=== PATIENT | male | born 1945 | race Caucasian/White ===

== ENCOUNTER 2020-04-27 12:13 | Inpatient (IN) ==
[2020-04-27] MEDS ORDERED: Nitroglycerin 0.4 MG TAB.SUBL SL PRN (12:26)
[2020-04-27] MEDS ORDERED: Aspirin 81 MG TAB.CHEW PO ONE (12:26)
[2020-04-27 12:45] LABS: Basophils % 0.3 %; Eosinophils % 0.1 %; Hematocrit 44.6 % (37.5-50.1); Hemoglobin 15.3 g/dL (12.9-16.9); Immature Granulocytes % 0.3 % (0-4); Lymphocytes # 1.4 K/mcL (0.6-4.6); Lymphocytes % 16.1 %; Mean Corpuscular HGB Conc 34.3 g/dL (31.6-35.5); Mean Corpuscular Hemoglobin 30.1 pg (28.0-33.3); Mean Corpuscular Volume 87.8 fL (83.0-100.0); Mean Platelet Volume 9.1 fL (9.4-12.4); Monocytes # 0.5 K/mcL (0.0-1.3); Monocytes % 5.5 %; Neutrophils # 6.9 K/mcL (1.6-8.9); Platelet Count 258 K/mcL (140-400); Red Blood Count 5.08 M/mcL (4.19-5.50); Red Cell Distribution Width 13.1 % (11.5-14.5); Segmented Neutrophils % 77.7 %; White Blood Count 8.9 K/mcL (4.3-11.1)
[2020-04-27 12:57] LABS: INR 1.1; Prothrombin Time 12.2 Seconds (9.4-12.1)
[2020-04-27 12:59] LABS: Activated Partial Thrombo Time 24.3 Seconds (26.0-36.0)
[2020-04-27 13:06] LABS: BUN/Creatinine Ratio 16 (6-26); Blood Urea Nitrogen 12 mg/dL (8-23); Carbon Dioxide 24 mEq/L (23-29); Chloride 101 mEq/L (98-107); Glucose 113 mg/dL (70-105); Osmolality,Calculated 279 (280-300); Potassium 3.8 mEq/L (3.5-5.1); Sodium 134 mEq/L (136-145); Troponin I < 0.03 ng/mL (< 0.04); eGFR For African Americans > 60 (> 60); eGFR For Non-African Americans > 60 (> 60)
[2020-04-27] MEDS ORDERED: Naloxone 0.4 MG/ML INJ IVP PRN (14:09)
[2020-04-27] MEDS ORDERED: Ondansetron 4 MG/2 ML VIAL IVP PRN (14:09)
[2020-04-27] MEDS: carvediloL 6.25 MG TABLET PO SCH (16:53)
[2020-04-27] MEDS ORDERED: Saline Nasal Spray 44 ML BOTTLE NS PRN (17:03)
[2020-04-27] MEDS: Acetaminophen 325 MG TABLET PO PRN (17:50)
[2020-04-27] MEDS: *HR* HYDROcodone/Acet 5/325 mg TABLET PO PRN (20:27)
[2020-04-28 01:21] LABS: Alanine Aminotransferase 11 Units/L (7-52); Albumin/Globulin Ratio 1.5 (1.1-2.2); Alkaline Phosphatase 72 Units/L (34-104); Aspartate Amino Transferase 13 Units/L (13-39); BUN/Creatinine Ratio 16 (6-26); Bilirubin,Total 0.9 mg/dL (0.3-1.0); Blood Urea Nitrogen 12 mg/dL (8-23); Calcium 8.6 mg/dL (8.6-10.3); Carbon Dioxide 22 mEq/L (23-29); Chloride 98 mEq/L (98-107); Chol/HDL Ratio 3.8 (0-4.9); Cholesterol 192 mg/dL (< 200); Globulin 2.7 g/dL (2.4-3.5); Glucose 120 mg/dL (70-105); HDL Cholesterol 51 mg/dL (40-59); LDL Cholesterol,Calculated 128 mg/dL (< 100); Magnesium 1.8 mg/dL (1.6-2.6); Osmolality,Calculated 273 (280-300); Potassium 3.6 mEq/L (3.5-5.1); Sodium 131 mEq/L (136-145); Total Protein 6.7 g/dL (6.4-8.9); Triglycerides 64 mg/dL (< 150); eGFR For African Americans > 60 (> 60); eGFR For Non-African Americans > 60 (> 60)
[2020-04-28] MEDS: Acetaminophen 325 MG TABLET PO PRN ×3 (03:30→16:48)
[2020-04-28] MEDS: *HR* Enoxaparin 40 MG/0.4 ML SYRINGE SQ SCH (05:37)
[2020-04-28] MEDS ORDERED: Regadenoson 0.4 MG/5 ML SYRINGE IVP ONE (06:05)
[2020-04-28] MEDS: Aspirin Enteric Coated 81 MG Tablet PO SCH (09:08)
[2020-04-28] MEDS: carvediloL 6.25 MG TABLET PO SCH (09:08)
[2020-04-28] MEDS ORDERED: carvediloL 6.25 MG TABLET PO ONE (11:35)
[2020-04-28] MEDS: lisinopriL 10 MG TABLET PO SCH (12:09)
[2020-04-28] MEDS ORDERED: Perflutren Lipid Microsphere 1.3 ML in 0.9 % Sodium Chloride 8.7 ML IVP PRN (12:38)
[2020-04-28] MEDS: Isosorbide MONOnitrate (24 HR) 30 MG TAB.ER.24H PO SCH (14:47)
[2020-04-28] MEDS: carvediloL 25 MG TABLET PO SCH (16:48)
[2020-04-29] MEDS: *HR* Enoxaparin 40 MG/0.4 ML SYRINGE SQ SCH (05:27)
[2020-04-29 08:03] LABS: Basophils % 0.3 %; Eosinophils # 0.1 K/mcL (0.0-0.6); Eosinophils % 0.5 %; Hematocrit 45.2 % (37.5-50.1); Hemoglobin 15.3 g/dL (12.9-16.9); Immature Granulocytes % 0.7 % (0-4); Lymphocytes # 2.3 K/mcL (0.6-4.6); Lymphocytes % 23.3 %; Mean Corpuscular HGB Conc 33.8 g/dL (31.6-35.5); Mean Corpuscular Volume 88.6 fL (83.0-100.0); Mean Platelet Volume 9.6 fL (9.4-12.4); Monocytes # 1.1 K/mcL (0.0-1.3); Monocytes % 10.4 %; Neutrophils # 6.5 K/mcL (1.6-8.9); Platelet Count 295 K/mcL (140-400); Red Cell Distribution Width 13.5 % (11.5-14.5); Segmented Neutrophils % 64.8 %; White Blood Count 10.1 K/mcL (4.3-11.1)
[2020-04-29] MEDS: Aspirin Enteric Coated 81 MG Tablet PO SCH (09:28)
[2020-04-29] MEDS: lisinopriL 10 MG TABLET PO SCH (09:28)
[2020-04-29] MEDS: Isosorbide MONOnitrate (24 HR) 30 MG TAB.ER.24H PO SCH (09:28)
[2020-04-29] MEDS: carvediloL 25 MG TABLET PO SCH ×2 (09:31→17:30)
[2020-04-29] MEDS: Acetaminophen 325 MG TABLET PO PRN ×2 (09:32→17:30)
[2020-04-29 09:35] LABS: Estimated Average Glucose 117 mg/dl
[2020-04-29 11:29] LABS: BUN/Creatinine Ratio 17 (6-26); Blood Urea Nitrogen 19 mg/dL (8-23); Calcium 8.7 mg/dL (8.6-10.3); Carbon Dioxide 22 mEq/L (23-29); Chloride 101 mEq/L (98-107); Glucose 115 mg/dL (70-105); Magnesium 2.2 mg/dL (1.6-2.6); Osmolality,Calculated 281 (280-300); Phosphorous 2.9 mg/dL (2.7-4.5); Potassium 3.6 mEq/L (3.5-5.1); Sodium 134 mEq/L (136-145); eGFR For African Americans > 60 (> 60); eGFR For Non-African Americans > 60 (> 60)
[2020-04-29] MEDS: *HR* HYDROcodone/Acet 5/325 mg TABLET PO PRN ×2 (13:07→20:06)
[2020-04-29] MEDS ORDERED: ISOVUE-370 200 ML INFUS..BTL ONE (14:05)
[2020-04-29] MEDS ORDERED: 0.9 % Sodium Chloride 1,000 ML ONE ×2 (14:05→14:34)
[2020-04-29] MEDS ORDERED: Nitroglycerin 1,000 MCG/10 ML VIAL IV ONE (14:05)
[2020-04-29] MEDS ORDERED: *HR* Heparin 10,000 UNIT/10 ML VIAL ONE (14:05)
[2020-04-29] MEDS ORDERED: Heparin 1,000 UNITS/500 mL 500 ML ONE (14:05)
[2020-04-29] MEDS ORDERED: *HR* FentaNYL (PF) 100 MCG/2 ML VIAL ONE (14:34)
[2020-04-29] MEDS ORDERED: *HR* Midazolam HCl 2 MG/2 ML VIAL ONE (14:34)
[2020-04-29] MEDS ORDERED: 0.9 % Sodium Chloride 1,000 ML IVC SCH (16:15)
[2020-04-29] MEDS ORDERED: Loratadine 10 MG TABLET PO PRN (17:52)
[2020-04-29] MEDS: Gabapentin 100 MG CAPSULE PO SCH (20:06)
[2020-04-30] MEDS: *HR* Enoxaparin 40 MG/0.4 ML SYRINGE SQ SCH (05:38)
[2020-04-30 06:18] LABS: Basophils # 0.1 K/mcL (0.0-0.2); Basophils % 0.6 %; Eosinophils # 0.1 K/mcL (0.0-0.6); Hemoglobin 14.6 g/dL (12.9-16.9); Immature Granulocytes % 0.9 % (0-4); Lymphocytes # 2.2 K/mcL (0.6-4.6); Lymphocytes % 26.3 %; Mean Corpuscular Hemoglobin 30.4 pg (28.0-33.3); Mean Corpuscular Volume 89.6 fL (83.0-100.0); Monocytes % 12.4 %; Neutrophils # 4.8 K/mcL (1.6-8.9); Platelet Count 268 K/mcL (140-400); Red Cell Distribution Width 13.3 % (11.5-14.5); Segmented Neutrophils % 58.8 %; White Blood Count 8.2 K/mcL (4.3-11.1)
[2020-04-30 06:53] LABS: BUN/Creatinine Ratio 22 (6-26); Blood Urea Nitrogen 26 mg/dL (8-23); Calcium 8.3 mg/dL (8.6-10.3); Carbon Dioxide 24 mEq/L (23-29); Chloride 103 mEq/L (98-107); Glucose 90 mg/dL (70-105); Magnesium 2.3 mg/dL (1.6-2.6); Osmolality,Calculated 286 (280-300); Phosphorous 3.4 mg/dL (2.7-4.5); Potassium 3.6 mEq/L (3.5-5.1); Sodium 136 mEq/L (136-145); eGFR For African Americans > 60 (> 60); eGFR For Non-African Americans > 60 (> 60)
[2020-04-30] MEDS: Gabapentin 100 MG CAPSULE PO SCH ×3 (09:22→22:34)
[2020-04-30] MEDS: carvediloL 25 MG TABLET PO SCH ×2 (09:22→16:29)
[2020-04-30] MEDS: Isosorbide MONOnitrate (24 HR) 30 MG TAB.ER.24H PO SCH (09:22)
[2020-04-30] MEDS: Aspirin Enteric Coated 81 MG Tablet PO SCH (09:22)
[2020-04-30] MEDS: Acetaminophen 325 MG TABLET PO PRN (09:27)
[2020-05-01] MEDS: *HR* Enoxaparin 40 MG/0.4 ML SYRINGE SQ SCH (06:16)
[2020-05-01] MEDS: Isosorbide MONOnitrate (24 HR) 30 MG TAB.ER.24H PO SCH (10:43)
[2020-05-01] MEDS: Gabapentin 100 MG CAPSULE PO SCH ×3 (10:44→21:38)
[2020-05-01] MEDS: carvediloL 25 MG TABLET PO SCH ×2 (10:44→18:07)
[2020-05-01] MEDS: Aspirin Enteric Coated 81 MG Tablet PO SCH (10:47)
[2020-05-01] MEDS: *HR* HYDROcodone/Acet 5/325 mg TABLET PO PRN ×2 (13:58→21:38)
[2020-05-01] MEDS: Acetaminophen 325 MG TABLET PO PRN (23:30)
[2020-05-02] MEDS: *HR* Enoxaparin 40 MG/0.4 ML SYRINGE SQ SCH (06:39)
[2020-05-02] MEDS: carvediloL 25 MG TABLET PO SCH ×2 (08:29→16:46)
[2020-05-02] MEDS: Gabapentin 100 MG CAPSULE PO SCH ×3 (08:29→21:01)
[2020-05-02] MEDS: Aspirin Enteric Coated 81 MG Tablet PO SCH (08:29)
[2020-05-02] MEDS: Isosorbide MONOnitrate (24 HR) 30 MG TAB.ER.24H PO SCH (08:29)
[2020-05-02] MEDS: *HR* HYDROcodone/Acet 5/325 mg TABLET PO PRN ×2 (10:52→21:00)
[2020-05-03 05:41] LABS: Basophils % 0.5 %; Eosinophils # 0.2 K/mcL (0.0-0.6); Eosinophils % 3.6 %; Hematocrit 40.5 % (37.5-50.1); Hemoglobin 13.7 g/dL (12.9-16.9); Immature Granulocytes % 0.6 % (0-4); Lymphocytes # 1.9 K/mcL (0.6-4.6); Lymphocytes % 29.6 %; Mean Corpuscular HGB Conc 33.8 g/dL (31.6-35.5); Mean Corpuscular Hemoglobin 30.3 pg (28.0-33.3); Mean Corpuscular Volume 89.6 fL (83.0-100.0); Mean Platelet Volume 9.1 fL (9.4-12.4); Monocytes # 0.7 K/mcL (0.0-1.3); Monocytes % 11.2 %; Neutrophils # 3.5 K/mcL (1.6-8.9); Platelet Count 250 K/mcL (140-400); Red Blood Count 4.52 M/mcL (4.19-5.50); Red Cell Distribution Width 13.3 % (11.5-14.5); Segmented Neutrophils % 54.5 %; White Blood Count 6.4 K/mcL (4.3-11.1)
[2020-05-03 05:51] LABS: BUN/Creatinine Ratio 22 (6-26); Blood Urea Nitrogen 18 mg/dL (8-23); Calcium 8.3 mg/dL (8.6-10.3); Carbon Dioxide 26 mEq/L (23-29); Chloride 106 mEq/L (98-107); Glucose 103 mg/dL (70-105); Magnesium 1.9 mg/dL (1.6-2.6); Osmolality,Calculated 288 (280-300); Potassium 3.7 mEq/L (3.5-5.1); Sodium 138 mEq/L (136-145); eGFR For African Americans > 60 (> 60); eGFR For Non-African Americans > 60 (> 60)
[2020-05-03] MEDS: *HR* Enoxaparin 40 MG/0.4 ML SYRINGE SQ SCH (06:28)
[2020-05-03] MEDS: Isosorbide MONOnitrate (24 HR) 30 MG TAB.ER.24H PO SCH (07:14)
[2020-05-03] MEDS: Aspirin Enteric Coated 81 MG Tablet PO SCH (07:14)
[2020-05-03] MEDS: carvediloL 25 MG TABLET PO SCH ×2 (07:16→16:44)
[2020-05-03] MEDS: Gabapentin 100 MG CAPSULE PO SCH ×3 (07:17→20:21)
[2020-05-03] MEDS: Acetaminophen 325 MG TABLET PO PRN (09:45)
[2020-05-03 17:49] LABS: Bilirubin,Urine Negative (Negative); Blood,Urine Negative (Negative); Clarity,Urine Clear (Clear); Color,Urine Yellow (Yellow); Glucose,Urine (UA) 30 mg/dL (Normal); Ketones,Urine Negative (Negative); Leukocyte Esterase,Urine Negative (Negative); Mucus,Urine Few per lpf (None-Few); Nitrite,Urine Negative (Negative); Protein,Urine Trace mg/dL (Neg-Trace); Specific Gravity,Urine 1.028 (1.010-1.025); Urobilinogen,Urine Normal (Normal); WBC,Urine 0-3 per hpf (0-3)
[2020-05-04] MEDS: *HR* Enoxaparin 40 MG/0.4 ML SYRINGE SQ SCH (05:17)
[2020-05-04] MEDS: Aspirin Enteric Coated 81 MG Tablet PO SCH (08:36)
[2020-05-04] MEDS: Isosorbide MONOnitrate (24 HR) 30 MG TAB.ER.24H PO SCH (08:36)
[2020-05-04] MEDS: carvediloL 25 MG TABLET PO SCH ×2 (08:36→16:03)
[2020-05-04] MEDS: Gabapentin 100 MG CAPSULE PO SCH ×3 (08:36→20:12)
[2020-05-04] MEDS: *HR* HYDROcodone/Acet 5/325 mg TABLET PO PRN ×2 (11:30→17:32)
[2020-05-04 18:47] LABS: Adenovirus Not Detected (Not Detect); Bordetella Pertussis Not Detected (Not Detect); Chlamydophila pneumoniae Not Detected (Not Detect); Coronavirus 229E Not Detected (Not Detect); Coronavirus HKU1 Not Detected (Not Detect); Coronavirus NL63 Not Detected (Not Detect); Coronavirus OC43 Not Detected (Not Detect); Human Metapneumovirus Not Detected (Not Detect); Human Rhinovirus/Enterovirus Not Detected (Not Detect); Influenza A Subtype 2009 H1 Not Detected (Not Detect); Influenza B Not Detected (Not Detect); Mycoplasma pneumoniae Not Detected (Not Detect); Parainfluenza Virus 1 Not Detected (Not Detect); Parainfluenza Virus 2 Not Detected (Not Detect); Parainfluenza Virus 3 Not Detected (Not Detect); Parainfluenza Virus 4 Not Detected (Not Detect); Respiratory Syncytial Virus Not Detected (Not Detect); SARS-CoV-2 Not Detected (Not Detect)
[2020-05-04] MEDS: Chlorhexidine Rinse 15 ML MOUTHWASH MM SCH (20:12)
[2020-05-05] MEDS: carvediloL 25 MG TABLET PO SCH (06:33)
[2020-05-05] MEDS: Chlorhexidine Rinse 15 ML MOUTHWASH MM SCH ×2 (06:51→19:48)
[2020-05-05] MEDS ORDERED: *HR* Midazolam HCl 5 MG/5 ML VIAL IVP ONE (06:59)
[2020-05-05] MEDS ORDERED: *HR* Propofol 200 MG/20 ML VIAL IVP ONE (06:59)
[2020-05-05] MEDS ORDERED: *HR* FentaNYL (PF) 1,000 MCG/20 ML VIAL ONE (06:59)
[2020-05-05] MEDS ORDERED: Dexamethasone 4 MG/ML VIAL ONE (07:00)
[2020-05-05] MEDS ORDERED: Famotidine 20 MG/2 ML VIAL ONE (07:00)
[2020-05-05] MEDS ORDERED: Tranexamic Acid 1,000 MG/10 ML VIAL ONE (07:00)
[2020-05-05] MEDS ORDERED: Lidocaine 2% Syringe 100 MG/5 ML ONE (07:00)
[2020-05-05] MEDS ORDERED: CeFAZolin Syr 2,000MG/20 ML 2,000 MG/20 ML SYRINGE IVPB ONE (07:00)
[2020-05-05] MEDS ORDERED: *HR* Rocuronium Bromide 50 MG/5 ML VIAL ONE ×3 (07:00→11:28)
[2020-05-05] MEDS ORDERED: *HR* Magnesium Sulfate 1 GM/2 ML VIAL ONE (07:00)
[2020-05-05] MEDS ORDERED: *HR* PHENYLEPHRINE 1,000 MCG/10 ML SYRINGE IVP ONE ×2 (07:00→12:30)
[2020-05-05] MEDS ORDERED: Papaverine 60 MG/2 ML VIAL IVP ONE (07:05)
[2020-05-05] MEDS ORDERED: Norepinephrine 4 MG in 0.9 % Sodium Chloride 250 ML IVC PRN (07:45)
[2020-05-05] MEDS ORDERED: Dextrose 50 % in Water (Vial) 30 ML, Sodium Bicarbonate 20 MEQ, Lidocaine 1% 5 ML, Insu... TH ONE ×3 (07:45)
[2020-05-05] MEDS ORDERED: Heparin 15,000 UNIT in 0.9 % Sodium Chloride 500 ML IV ONE (07:45)
[2020-05-05] MEDS ORDERED: Dextrose 50 % in Water (Vial) 30 ML, Sodium Bicarbonate 20 MEQ, Potassium Chloride 15 M... TH ONE (07:45)
[2020-05-05] MEDS ORDERED: Insulin Human Regular 100 UNIT in 0.9 % Sodium Chloride 100 ML IV PRN (07:45)
[2020-05-05] MEDS: Aspirin Enteric Coated 81 MG Tablet PO SCH (08:13)
[2020-05-05] MEDS: Gabapentin 100 MG CAPSULE PO SCH ×3 (08:13→19:33)
[2020-05-05] MEDS: Isosorbide MONOnitrate (24 HR) 30 MG TAB.ER.24H PO SCH (08:13)
[2020-05-05 08:41] LABS: ABG Base Excess -1 mEq/L (-2 to 3); ABG Chloride 103 mEq/L (98-107); ABG Glucose 117 mg/dL (60-95); ABG HCO3 26 mEq/L (21-27); ABG Ionized Calcium 1.19 mmol/L (1.15-1.35); ABG Oxygen Saturation 100 % (95-98); ABG PCO2 51 mmHg (35-45); ABG PH 7.31 pH Units (7.32-7.45); ABG PO2 486 mmHg (85-104); ABG TCO2 27 mEq/L (20-26)
[2020-05-05 09:45] LABS: ABG Base Excess 1 mEq/L (-2 to 3); ABG Chloride 105 mEq/L (98-107); ABG Glucose 160 mg/dL (60-95); ABG HCO3 26 mEq/L (21-27); ABG Ionized Calcium 1.11 mmol/L (1.15-1.35); ABG Oxygen Saturation 100 % (95-98); ABG PCO2 42 mmHg (35-45); ABG PH 7.39 pH Units (7.32-7.45); ABG PO2 252 mmHg (85-104); ABG TCO2 27 mEq/L (20-26)
[2020-05-05] MEDS ORDERED: *HR* Heparin 10,000 UNIT/10 ML VIAL IR ONE (10:10)
[2020-05-05] MEDS ORDERED: Lidocaine 2% Syringe 100 MG/5 ML IVP ONE (10:10)
[2020-05-05] MEDS ORDERED: D5% in Water 250 ML IV BAG IV ONE (10:10)
[2020-05-05] MEDS ORDERED: Heparin 1,000 UNITS/500 mL IV.SOLN IR ONE (10:10)
[2020-05-05] MEDS ORDERED: *HR* Phenylephrine 10 MG/ML VIAL IVC ONE (10:10)
[2020-05-05] MEDS ORDERED: Albumin Human 25% 25 GM/100 ML IV.SOLN IVPB ONE (10:10)
[2020-05-05] MEDS ORDERED: *HR* Magnesium Sulfate 2 GM/50 ML PIGGYBACK IVPB ONE (10:10)
[2020-05-05] MEDS ORDERED: Mannitol 25% vial 12.5 GM/50 ML VIAL IVPB ONE (10:10)
[2020-05-05] MEDS ORDERED: Tranexamic Acid 1,000 MG/10 ML VIAL IR ONE (10:10)
[2020-05-05 11:16] LABS: ABG Base Excess 2 mEq/L (-2 to 3); ABG Chloride 99 mEq/L (98-107); ABG Glucose 233 mg/dL (60-95); ABG HCO3 26 mEq/L (21-27); ABG Ionized Calcium 0.96 mmol/L (1.15-1.35); ABG PCO2 41 mmHg (35-45); ABG PH 7.42 pH Units (7.32-7.45); ABG PO2 > 630 mmHg (85-104); ABG TCO2 28 mEq/L (20-26)
[2020-05-05] MEDS ORDERED: Protamine Sulfate 250 MG/25 ML VIAL IVP ONE (11:19)
[2020-05-05] MEDS ORDERED: Calcium Gluconate 1,000 MG/10 ML VIAL ONE (11:19)
[2020-05-05 11:21] LABS: ABG Base Excess 6 mEq/L (-2 to 3); ABG Chloride 97 mEq/L (98-107); ABG Glucose 207 mg/dL (60-95); ABG HCO3 34 mEq/L (21-27); ABG Oxygen Saturation 100 % (95-98); ABG PCO2 68 mmHg (35-45); ABG PH 7.31 pH Units (7.32-7.45); ABG PO2 620 mmHg (85-104); ABG TCO2 36 mEq/L (20-26)
[2020-05-05] MEDS ORDERED: *HR* FentaNYL (PF) 250 MCG/5 ML VIAL ONE (11:28)
[2020-05-05] MEDS ORDERED: Albumin Human 5% 12.5 GM/250 ML IV.SOLN ONE ×2 (11:59→12:56)
[2020-05-05 12:01] LABS: ABG Base Excess 3 mEq/L (-2 to 3); ABG Chloride 101 mEq/L (98-107); ABG Glucose 144 mg/dL (60-95); ABG HCO3 27 mEq/L (21-27); ABG Ionized Calcium 1.03 mmol/L (1.15-1.35); ABG PCO2 41 mmHg (35-45); ABG PH 7.43 pH Units (7.32-7.45); ABG PO2 > 630 mmHg (85-104); ABG TCO2 28 mEq/L (20-26)
[2020-05-05 12:52] LABS: ABG Base Excess 0 mEq/L (-2 to 3); ABG Chloride 103 mEq/L (98-107); ABG Glucose 127 mg/dL (60-95); ABG HCO3 24 mEq/L (21-27); ABG Ionized Calcium 0.94 mmol/L (1.15-1.35); ABG Oxygen Saturation 100 % (95-98); ABG PCO2 35 mmHg (35-45); ABG PH 7.44 pH Units (7.32-7.45); ABG PO2 216 mmHg (85-104); ABG TCO2 25 mEq/L (20-26)
[2020-05-05] MEDS ORDERED: 0.9 % Sodium Chloride 500 ML ONE (13:09)
[2020-05-05] MEDS ORDERED: Potassium Chloride 40 MEQ/200 ML BAG IVPB PRN (13:34)
[2020-05-05] MEDS ORDERED: *HR* Dextrose 50 % in Water (Vial) 50 ML VIAL IVP PRN (13:34)
[2020-05-05] MEDS ORDERED: *HR* Promethazine 25 MG/ML VIAL IM PRN (13:34)
[2020-05-05] MEDS ORDERED: Insulin Regular, Human 100 UNIT/ML IV PRN (13:34)
[2020-05-05] MEDS ORDERED: Insulin Human Regular 100 UNIT in 0.9 % Sodium Chloride 100 ML IVC SCH (13:45)
[2020-05-05 14:21] LABS: ABG Base Excess 1 mEq/L (-2 to 3); ABG HCO3 25 mEq/L (21-27); ABG Oxygen Saturation 98 % (95-98); ABG PCO2 37 mmHg (35-45); ABG PH 7.44 pH Units (7.32-7.45); ABG PO2 92 mmHg (85-104); ABG TCO2 26 mEq/L (20-26); Blood Gas VT 700 cc
[2020-05-05 14:28] LABS: Basophils % 0.1 %; Eosinophils % 0.4 %; Hematocrit 33.7 % (37.5-50.1); Immature Granulocytes % 0.9 % (0-4); Lymphocytes # 0.5 K/mcL (0.6-4.6); Mean Corpuscular HGB Conc 33.8 g/dL (31.6-35.5); Mean Corpuscular Hemoglobin 29.4 pg (28.0-33.3); Mean Corpuscular Volume 86.9 fL (83.0-100.0); Mean Platelet Volume 9.2 fL (9.4-12.4); Monocytes # 0.2 K/mcL (0.0-1.3); Monocytes % 2.1 %; Platelet Count 119 K/mcL (140-400); Red Blood Count 3.88 M/mcL (4.19-5.50); Red Cell Distribution Width 13.7 % (11.5-14.5); Segmented Neutrophils % 92.5 %
[2020-05-05 14:29] LABS: Hemoglobin 11.4 g/dL (12.9-16.9); Neutrophils # 10.4 K/mcL (1.6-8.9); White Blood Count 11.2 K/mcL (4.3-11.1)
[2020-05-05 14:35] LABS: INR 1.5; Prothrombin Time 17.5 Seconds (9.4-12.1)
[2020-05-05] MEDS: *HR* HYDROcodone/Acet 5/325 mg TABLET PO PRN (14:44)
[2020-05-05] MEDS: *HR* FentaNYL (PF) 100 MCG/2 ML VIAL IVP PRN ×6 (14:44→23:46)
[2020-05-05] MEDS: niCARdipine 20 MG/200 ML MLS IVC SCH ×4 (14:51→22:27)
[2020-05-05] MEDS: Norepinephrine 4 MG/254 ML IV.SOLN IVC SCH (14:51)
[2020-05-05] MEDS: 0.9 % Sodium Chloride 1,000 ML IVC SCH (14:52)
[2020-05-05 14:58] LABS: BUN/Creatinine Ratio 20 (6-26); Blood Urea Nitrogen 12 mg/dL (8-23); Calcium 6.7 mg/dL (8.6-10.3); Carbon Dioxide 25 mEq/L (23-29); Chloride 107 mEq/L (98-107); Glucose 180 mg/dL (70-105); Magnesium 2.2 mg/dL (1.6-2.6); Osmolality,Calculated 292 (280-300); Potassium 3.8 mEq/L (3.5-5.1); Sodium 139 mEq/L (136-145); eGFR For African Americans > 60 (> 60); eGFR For Non-African Americans > 60 (> 60)
[2020-05-05] MEDS: Albumin Human 5% 12.5 GM/250 ML IV.SOLN IVPB PRN ×3 (15:34→19:00)
[2020-05-05] MEDS ORDERED: *HR* LORazepam 2 MG/ML VIAL IVP PRN (15:36)
[2020-05-05] MEDS: CeFAZolin 2 GM/120 ML BAG IVPB SCH ×2 (16:11→23:07)
[2020-05-05 17:42] LABS: Basophils % 0.1 %; Hematocrit 26.6 % (37.5-50.1); Immature Granulocytes % 0.6 % (0-4); Lymphocytes # 0.4 K/mcL (0.6-4.6); Lymphocytes % 4.3 %; Mean Corpuscular HGB Conc 33.8 g/dL (31.6-35.5); Mean Corpuscular Hemoglobin 30.5 pg (28.0-33.3); Mean Corpuscular Volume 90.2 fL (83.0-100.0); Mean Platelet Volume 9.4 fL (9.4-12.4); Monocytes # 0.6 K/mcL (0.0-1.3); Neutrophils # 8.5 K/mcL (1.6-8.9); Platelet Count 122 K/mcL (140-400); Red Blood Count 2.95 M/mcL (4.19-5.50); Red Cell Distribution Width 13.7 % (11.5-14.5); White Blood Count 9.6 K/mcL (4.3-11.1)
[2020-05-05 17:47] LABS: INR 1.3; Prothrombin Time 15.1 Seconds (9.4-12.1)
[2020-05-05 17:50] LABS: Activated Partial Thrombo Time 29.1 Seconds (26.0-36.0)
[2020-05-05 18:10] LABS: ABG Base Excess 5 mEq/L (-2 to 3); ABG HCO3 29 mEq/L (21-27); ABG Oxygen Saturation 94 % (95-98); ABG PCO2 44 mmHg (35-45); ABG PH 7.44 pH Units (7.32-7.45); ABG PO2 70 mmHg (85-104); ABG TCO2 31 mEq/L (20-26); Blood Gas Modality CPAP/PS; Blood Gas Pressure Support 8 cm H2O
[2020-05-05 19:56] LABS: ABG Base Excess 4 mEq/L (-2 to 3); ABG HCO3 29 mEq/L (21-27); ABG Oxygen Saturation 97 % (95-98); ABG PCO2 44 mmHg (35-45); ABG PH 7.42 pH Units (7.32-7.45); ABG PO2 90 mmHg (85-104); ABG TCO2 30 mEq/L (20-26)
[2020-05-05] MEDS: *HR* OxyCODONE/APAP 5/325 TABLET PO PRN (20:00)
[2020-05-06] MEDS: niCARdipine 20 MG/200 ML MLS IVC SCH ×7 (00:08→23:16)
[2020-05-06] MEDS: Albumin Human 5% 12.5 GM/250 ML IV.SOLN IVPB PRN (00:12)
[2020-05-06] MEDS: *HR* OxyCODONE/APAP 5/325 TABLET PO PRN ×3 (00:52→20:01)
[2020-05-06 02:50] LABS: Basophils % 0.1 %; Hematocrit 23.5 % (37.5-50.1); Hemoglobin 8.1 g/dL (12.9-16.9); Immature Granulocytes % 0.1 % (0-4); Lymphocytes # 0.8 K/mcL (0.6-4.6); Lymphocytes % 8.6 %; Mean Corpuscular HGB Conc 34.5 g/dL (31.6-35.5); Mean Corpuscular Hemoglobin 30.7 pg (28.0-33.3); Mean Platelet Volume 9.9 fL (9.4-12.4); Monocytes # 0.7 K/mcL (0.0-1.3); Monocytes % 7.3 %; Neutrophils # 8.1 K/mcL (1.6-8.9); Platelet Count 134 K/mcL (140-400); Red Blood Count 2.64 M/mcL (4.19-5.50); Red Cell Distribution Width 13.8 % (11.5-14.5); Segmented Neutrophils % 83.9 %; White Blood Count 9.7 K/mcL (4.3-11.1)
[2020-05-06 03:01] LABS: BUN/Creatinine Ratio 22 (6-26); Blood Urea Nitrogen 16 mg/dL (8-23); Calcium 7.1 mg/dL (8.6-10.3); Carbon Dioxide 27 mEq/L (23-29); Chloride 107 mEq/L (98-107); Glucose 110 mg/dL (70-105); Osmolality,Calculated 290 (280-300); Potassium 3.5 mEq/L (3.5-5.1); Sodium 139 mEq/L (136-145); eGFR For African Americans > 60 (> 60); eGFR For Non-African Americans > 60 (> 60)
[2020-05-06] MEDS: *HR* FentaNYL (PF) 100 MCG/2 ML VIAL IVP PRN ×2 (03:52→12:51)
[2020-05-06] MEDS: 0.9 % Sodium Chloride 1,000 ML IVC SCH ×3 (03:53→17:44)
[2020-05-06] MEDS ORDERED: 0.9 % Sodium Chloride 250 ML ONE (06:35)
[2020-05-06] MEDS ORDERED: Furosemide 20 MG/2 ML VIAL IVP ONE (07:14)
[2020-05-06] MEDS: Chlorhexidine Rinse 15 ML MOUTHWASH MM SCH ×2 (08:01→20:01)
[2020-05-06] MEDS: Aspirin Enteric Coated 81 MG Tablet PO SCH (08:01)
[2020-05-06] MEDS: Gabapentin 100 MG CAPSULE PO SCH ×3 (08:01→20:02)
[2020-05-06] MEDS ORDERED: Pantoprazole 40 MG VIAL IVP SCH (09:00)
[2020-05-06] MEDS: *HR* HYDROcodone/Acet 5/325 mg TABLET PO PRN ×2 (09:47→15:25)
[2020-05-06] MEDS: Insulin LISPRO 300 UNITS/3 ML VIAL SQ SCH ×3 (11:01→20:10)
[2020-05-06] MEDS: Norepinephrine 4 MG/254 ML IV.SOLN IVC SCH (11:01)
[2020-05-07] MEDS: *HR* OxyCODONE/APAP 5/325 TABLET PO PRN ×5 (00:02→16:17)
[2020-05-07 03:43] LABS: Basophils % 0.1 %; Eosinophils % 0.2 %; Hematocrit 28.5 % (37.5-50.1); Hemoglobin 9.4 g/dL (12.9-16.9); Immature Granulocytes % 0.3 % (0-4); Lymphocytes # 1.7 K/mcL (0.6-4.6); Lymphocytes % 17.6 %; Mean Corpuscular Hemoglobin 29.4 pg (28.0-33.3); Mean Corpuscular Volume 89.1 fL (83.0-100.0); Monocytes # 1.2 K/mcL (0.0-1.3); Monocytes % 12.4 %; Neutrophils # 6.7 K/mcL (1.6-8.9); Platelet Count 151 K/mcL (140-400); Red Cell Distribution Width 13.9 % (11.5-14.5); Segmented Neutrophils % 69.4 %; White Blood Count 9.7 K/mcL (4.3-11.1)
[2020-05-07 03:58] LABS: BUN/Creatinine Ratio 24 (6-26); Blood Urea Nitrogen 16 mg/dL (8-23); Calcium 7.4 mg/dL (8.6-10.3); Carbon Dioxide 27 mEq/L (23-29); Chloride 105 mEq/L (98-107); Glucose 119 mg/dL (70-105); Osmolality,Calculated 286 (280-300); Potassium 3.8 mEq/L (3.5-5.1); Sodium 137 mEq/L (136-145); eGFR For African Americans > 60 (> 60); eGFR For Non-African Americans > 60 (> 60)
[2020-05-07] MEDS: niCARdipine 20 MG/200 ML MLS IVC SCH ×3 (07:08→14:47)
[2020-05-07] MEDS: Chlorhexidine Rinse 15 ML MOUTHWASH MM SCH ×2 (07:16→21:00)
[2020-05-07] MEDS: 0.9 % Sodium Chloride 1,000 ML IVC SCH (07:17)
[2020-05-07] MEDS: Aspirin Enteric Coated 81 MG Tablet PO SCH (07:18)
[2020-05-07] MEDS: Gabapentin 100 MG CAPSULE PO SCH ×3 (07:18→21:00)
[2020-05-07] MEDS: Insulin LISPRO 300 UNITS/3 ML VIAL SQ SCH ×4 (07:30→21:01)
[2020-05-07] MEDS ORDERED: *HR* Amiodarone 150 MG/3 ML VIAL IVPB ONE (10:10)
[2020-05-07] MEDS: Norepinephrine 4 MG/254 ML IV.SOLN IVC SCH (12:01)
[2020-05-07] MEDS ORDERED: Calcium Gluconate 1gm/50mL 2 GM/100 ML BAG IVPB ONE (12:42)
[2020-05-07] MEDS ORDERED: Amiodarone Premix 150 MG/100 ML BAG IVPB ONE ×3 (13:42→15:49)
[2020-05-07] MEDS ORDERED: Amiodarone Premix 360 MG/200 ML BAG IVC ONE (13:43)
[2020-05-07] MEDS: Calcium Gluconate 1gm/50mL 1 GM/50 ML BAG IVPB SCH ×2 (13:58→14:46)
[2020-05-07] MEDS: Amiodarone Premix 360 MG/200 ML BAG IVC SCH ×2 (14:47→18:30)
[2020-05-07] MEDS ORDERED: *HR* Digoxin 0.5 MG/2 ML AMPUL IVP ONE (15:47)
[2020-05-07 17:31] LABS: VBG Ionized Calcium 1.06 mmol/L (1.15-1.35)
[2020-05-07 17:48] LABS: Alanine Aminotransferase 17 Units/L (7-52); Albumin 3.4 g/dL (3.5-5.7); Albumin/Globulin Ratio 1.7 (1.1-2.2); Alkaline Phosphatase 42 Units/L (34-104); Aspartate Amino Transferase 22 Units/L (13-39); BUN/Creatinine Ratio 18 (6-26); Bilirubin,Total 0.5 mg/dL (0.3-1.0); Blood Urea Nitrogen 13 mg/dL (8-23); Calcium 7.9 mg/dL (8.6-10.3); Carbon Dioxide 29 mEq/L (23-29); Chloride 103 mEq/L (98-107); Glucose 151 mg/dL (70-105); Magnesium 2.2 mg/dL (1.6-2.6); Osmolality,Calculated 287 (280-300); Sodium 137 mEq/L (136-145); Total Protein 5.4 g/dL (6.4-8.9); eGFR For African Americans > 60 (> 60); eGFR For Non-African Americans > 60 (> 60)
[2020-05-07] MEDS: *HR* HYDROcodone/Acet 5/325 mg TABLET PO PRN (23:42)
[2020-05-08 04:48] LABS: Basophils % 0.2 %; Eosinophils # 0.1 K/mcL (0.0-0.6); Eosinophils % 0.9 %; Hematocrit 28.9 % (37.5-50.1); Hemoglobin 9.8 g/dL (12.9-16.9); Immature Granulocytes % 0.5 % (0-4); Lymphocytes # 1.9 K/mcL (0.6-4.6); Lymphocytes % 19.5 %; Mean Corpuscular HGB Conc 33.9 g/dL (31.6-35.5); Mean Corpuscular Hemoglobin 30.3 pg (28.0-33.3); Mean Corpuscular Volume 89.5 fL (83.0-100.0); Mean Platelet Volume 9.8 fL (9.4-12.4); Monocytes % 10.4 %; Neutrophils # 6.8 K/mcL (1.6-8.9); Platelet Count 180 K/mcL (140-400); Red Blood Count 3.23 M/mcL (4.19-5.50); Red Cell Distribution Width 13.7 % (11.5-14.5); Segmented Neutrophils % 68.5 %; White Blood Count 9.9 K/mcL (4.3-11.1)
[2020-05-08 04:59] LABS: BUN/Creatinine Ratio 17 (6-26); Blood Urea Nitrogen 12 mg/dL (8-23); Carbon Dioxide 29 mEq/L (23-29); Chloride 104 mEq/L (98-107); Glucose 121 mg/dL (70-105); Osmolality,Calculated 287 (280-300); Potassium 3.7 mEq/L (3.5-5.1); Sodium 138 mEq/L (136-145); eGFR For African Americans > 60 (> 60); eGFR For Non-African Americans > 60 (> 60)
[2020-05-08] MEDS: Amiodarone Premix 360 MG/200 ML BAG IVC SCH ×3 (07:03→19:50)
[2020-05-08] MEDS: niCARdipine 20 MG/200 ML MLS IVC SCH ×5 (07:52→08:14)
[2020-05-08] MEDS: Gabapentin 100 MG CAPSULE PO SCH ×3 (07:57→20:42)
[2020-05-08] MEDS: Chlorhexidine Rinse 15 ML MOUTHWASH MM SCH ×2 (07:57→20:41)
[2020-05-08] MEDS: *HR* OxyCODONE/APAP 5/325 TABLET PO PRN (07:57)
[2020-05-08] MEDS: Aspirin Enteric Coated 81 MG Tablet PO SCH (07:57)
[2020-05-08] MEDS: Norepinephrine 4 MG/254 ML IV.SOLN IVC SCH (07:58)
[2020-05-08] MEDS: 0.9 % Sodium Chloride 1,000 ML IVC SCH (07:58)
[2020-05-08] MEDS: Insulin LISPRO 300 UNITS/3 ML VIAL SQ SCH ×4 (07:58→20:51)
[2020-05-08] MEDS ORDERED: Acetaminophen 325 MG TABLET PO PRN (09:27)
[2020-05-08] MEDS ORDERED: *HR* Promethazine 25 MG/ML VIAL IM PRN (09:27)
[2020-05-08] MEDS ORDERED: Saline Nasal Spray 44 ML BOTTLE NS PRN (09:27)
[2020-05-08] MEDS ORDERED: Naloxone 0.4 MG/ML INJ IVP PRN (09:27)
[2020-05-08] MEDS ORDERED: Potassium Chloride 40 MEQ/200 ML BAG IVPB PRN (09:27)
[2020-05-08] MEDS ORDERED: *HR* Dextrose 50 % in Water (Vial) 50 ML VIAL IVP PRN (09:27)
[2020-05-08] MEDS ORDERED: Loratadine 10 MG TABLET PO PRN (09:27)
[2020-05-08] MEDS ORDERED: Perflutren Lipid Microsphere 1.3 ML in 0.9 % Sodium Chloride 8.7 ML IVP PRN (09:27)
[2020-05-08] MEDS ORDERED: Nitroglycerin 0.4 MG TAB.SUBL SL PRN (09:27)
[2020-05-08] MEDS ORDERED: *HR* LORazepam 2 MG/ML VIAL IVP PRN (09:27)
[2020-05-08] MEDS ORDERED: Ondansetron 4 MG/2 ML VIAL IVP PRN (09:27)
[2020-05-08] MEDS ORDERED: Amiodarone Premix 150 MG/100 ML BAG IVPB ONE ×2 (20:14→20:17)
[2020-05-08] MEDS ORDERED: Levalbuterol Neb 1.25 MG/3 ML IH PRN (20:37)
[2020-05-08 21:02] LABS: BUN/Creatinine Ratio 20 (6-26); Blood Urea Nitrogen 13 mg/dL (8-23); Calcium 8.3 mg/dL (8.6-10.3); Carbon Dioxide 27 mEq/L (23-29); Chloride 104 mEq/L (98-107); Glucose 148 mg/dL (70-105); Magnesium 2.3 mg/dL (1.6-2.6); Osmolality,Calculated 287 (280-300); Potassium 3.8 mEq/L (3.5-5.1); Sodium 137 mEq/L (136-145); eGFR For African Americans > 60 (> 60); eGFR For Non-African Americans > 60 (> 60)
[2020-05-09] MEDS: *HR* Metoprolol 5 MG/5 ML VIAL IVP SCH ×2 (02:45→08:14)
[2020-05-09] MEDS: *HR* OxyCODONE/APAP 5/325 TABLET PO PRN ×2 (04:42→21:41)
[2020-05-09] MEDS: Insulin LISPRO 300 UNITS/3 ML VIAL SQ SCH ×4 (07:52→21:44)
[2020-05-09] MEDS: Gabapentin 100 MG CAPSULE PO SCH ×3 (08:15→21:41)
[2020-05-09] MEDS: Aspirin Enteric Coated 81 MG Tablet PO SCH (08:17)
[2020-05-09] MEDS: Chlorhexidine Rinse 15 ML MOUTHWASH MM SCH (08:18)
[2020-05-09] MEDS: Amiodarone Premix 360 MG/200 ML BAG IVC SCH ×2 (10:37→23:24)
[2020-05-09] MEDS ORDERED: Perflutren Lipid Microsphere 1.3 ML in 0.9 % Sodium Chloride 8.7 ML IVP PRN (12:29)
[2020-05-09] MEDS: *HR* HYDROcodone/Acet 5/325 mg TABLET PO PRN (12:45)
[2020-05-09] MEDS: *HR* Amiodarone 200 MG TABLET PO SCH ×2 (14:03→21:42)
[2020-05-10] MEDS: *HR* HYDROcodone/Acet 5/325 mg TABLET PO PRN ×2 (03:52→20:13)
[2020-05-10] MEDS: Aspirin Enteric Coated 81 MG Tablet PO SCH (08:43)
[2020-05-10] MEDS: *HR* Amiodarone 200 MG TABLET PO SCH ×2 (08:43→20:13)
[2020-05-10] MEDS: Insulin LISPRO 300 UNITS/3 ML VIAL SQ SCH ×4 (08:45→20:22)
[2020-05-10] MEDS: Gabapentin 100 MG CAPSULE PO SCH ×3 (08:46→20:13)
[2020-05-11] MEDS: *HR* HYDROcodone/Acet 5/325 mg TABLET PO PRN ×2 (04:58→11:48)
[2020-05-11] MEDS: Insulin LISPRO 300 UNITS/3 ML VIAL SQ SCH ×4 (07:47→21:50)
[2020-05-11] MEDS: Aspirin Enteric Coated 81 MG Tablet PO SCH (08:15)
[2020-05-11] MEDS: *HR* OxyCODONE/APAP 5/325 TABLET PO PRN ×3 (08:15→21:50)
[2020-05-11] MEDS: Gabapentin 100 MG CAPSULE PO SCH ×3 (08:15→21:49)
[2020-05-11] MEDS: *HR* Amiodarone 200 MG TABLET PO SCH ×2 (08:18→21:49)
[2020-05-12] MEDS: *HR* OxyCODONE/APAP 5/325 TABLET PO PRN ×3 (04:11→20:29)
[2020-05-12] MEDS: *HR* Amiodarone 200 MG TABLET PO SCH ×2 (07:51→20:28)
[2020-05-12] MEDS: Gabapentin 100 MG CAPSULE PO SCH ×3 (07:51→20:29)
[2020-05-12] MEDS: *HR* HYDROcodone/Acet 5/325 mg TABLET PO PRN (07:51)
[2020-05-12] MEDS: Aspirin Enteric Coated 81 MG Tablet PO SCH (07:51)
[2020-05-12] MEDS: Insulin LISPRO 300 UNITS/3 ML VIAL SQ SCH ×4 (07:52→20:29)
[2020-05-13] MEDS: *HR* OxyCODONE/APAP 5/325 TABLET PO PRN ×2 (02:07→08:57)
[2020-05-13] MEDS: *HR* HYDROcodone/Acet 5/325 mg TABLET PO PRN (03:06)
[2020-05-13] MEDS: Insulin LISPRO 300 UNITS/3 ML VIAL SQ SCH ×4 (08:53→21:16)
[2020-05-13] MEDS: *HR* Amiodarone 200 MG TABLET PO SCH ×2 (08:56→21:15)
[2020-05-13] MEDS: Aspirin Enteric Coated 81 MG Tablet PO SCH (08:56)
[2020-05-13] MEDS: Gabapentin 100 MG CAPSULE PO SCH ×3 (08:57→21:15)
[2020-05-13] MEDS: Apixaban 5 MG TABLET PO SCH ×2 (10:04→21:15)
[2020-05-14] MEDS: *HR* HYDROcodone/Acet 5/325 mg TABLET PO PRN ×2 (00:12→08:23)
[2020-05-14] MEDS: *HR* OxyCODONE/APAP 5/325 TABLET PO PRN (04:50)
[2020-05-14 07:01] VITALS: BP 142/82
[2020-05-14] MEDS: *HR* Amiodarone 200 MG TABLET PO SCH (08:22)
[2020-05-14] MEDS: Apixaban 5 MG TABLET PO SCH (08:22)
[2020-05-14] MEDS: Aspirin Enteric Coated 81 MG Tablet PO SCH (08:23)
[2020-05-14] MEDS: Insulin LISPRO 300 UNITS/3 ML VIAL SQ SCH (08:23)
[2020-05-14] MEDS: Gabapentin 100 MG CAPSULE PO SCH (08:53)
[2020-05-14] MEDS ORDERED: FLU Vac QV 20-21 (6Month+)/PF 0.5 ML SYRINGE IM ONE (09:12)
== END 2020-05-14 10:11 | disposition home or self-care (01) | DRG 234 ==
LOC: EMEROOARM 12:13 → 3BNU 12:13 → SUATTDRO 04-28 14:48 → ICNU 05-05 09:34 → 2NNU 05-08 15:18
PROVIDERS: ADMIT Family Medicine; ATTEND Internal Medicine

== ENCOUNTER 2020-05-23 08:44 | Observation (INO) ==
[2020-05-23 09:29] LABS: INR 1.4; Prothrombin Time 16.5 Seconds (9.4-12.1)
[2020-05-23 09:31] LABS: Basophils % 0.4 %; Eosinophils # 0.3 K/mcL (0.0-0.6); Eosinophils % 3.3 %; Hematocrit 35.4 % (37.5-50.1); Hemoglobin 11.4 g/dL (12.9-16.9); Immature Granulocytes % 0.6 % (0-4); Lymphocytes % 20.1 %; Mean Corpuscular HGB Conc 32.2 g/dL (31.6-35.5); Mean Corpuscular Hemoglobin 29.1 pg (28.0-33.3); Mean Corpuscular Volume 90.3 fL (83.0-100.0); Mean Platelet Volume 8.7 fL (9.4-12.4); Monocytes # 0.7 K/mcL (0.0-1.3); Monocytes % 6.6 %; Neutrophils # 6.7 K/mcL (1.6-8.9); Platelet Count 538 K/mcL (140-400); Red Blood Count 3.92 M/mcL (4.19-5.50); Red Cell Distribution Width 14.6 % (11.5-14.5); White Blood Count 9.8 K/mcL (4.3-11.1)
[2020-05-23 09:32] LABS: Activated Partial Thrombo Time 34.5 Seconds (26.0-36.0)
[2020-05-23 09:50] LABS: BUN/Creatinine Ratio 13 (6-26); Blood Urea Nitrogen 11 mg/dL (8-23); Calcium 8.9 mg/dL (8.6-10.3); Carbon Dioxide 24 mEq/L (23-29); Chloride 105 mEq/L (98-107); Glucose 105 mg/dL (70-105); Osmolality,Calculated 282 (280-300); Sodium 136 mEq/L (136-145); Troponin I < 0.03 ng/mL (< 0.04); eGFR For African Americans > 60 (> 60); eGFR For Non-African Americans > 60 (> 60)
[2020-05-23] MEDS ORDERED: Loratadine 10 MG TABLET PO PRN (12:39)
[2020-05-23] MEDS ORDERED: Naloxone 0.4 MG/ML INJ IVP PRN (12:42)
[2020-05-23] MEDS ORDERED: Nitroglycerin 0.4 MG TAB.SUBL SL PRN (18:43)
[2020-05-23] MEDS: GuaiFENesin Liq 200 MG/10 ML UDC PO SCH (20:16)
[2020-05-23] MEDS: Apixaban 5 MG TABLET PO SCH (20:16)
[2020-05-24] MEDS: Acetaminophen 325 MG TABLET PO PRN ×2 (00:02→07:54)
[2020-05-24 05:28] LABS: Hematocrit 35.1 % (37.5-50.1); Hemoglobin 11.3 g/dL (12.9-16.9); Mean Corpuscular HGB Conc 32.2 g/dL (31.6-35.5); Mean Corpuscular Hemoglobin 29.2 pg (28.0-33.3); Mean Corpuscular Volume 90.7 fL (83.0-100.0); Mean Platelet Volume 8.6 fL (9.4-12.4); Platelet Count 483 K/mcL (140-400); Red Blood Count 3.87 M/mcL (4.19-5.50); Red Cell Distribution Width 14.4 % (11.5-14.5); White Blood Count 7.7 K/mcL (4.3-11.1)
[2020-05-24 05:52] LABS: BUN/Creatinine Ratio 11 (6-26); Blood Urea Nitrogen 10 mg/dL (8-23); Calcium 8.8 mg/dL (8.6-10.3); Carbon Dioxide 23 mEq/L (23-29); Chloride 103 mEq/L (98-107); Chol/HDL Ratio 2.8 (0-4.9); Cholesterol 100 mg/dL (< 200); Glucose 97 mg/dL (70-105); HDL Cholesterol 36 mg/dL (40-59); LDL Cholesterol,Calculated 50 mg/dL (< 100); Magnesium 2.1 mg/dL (1.6-2.6); Osmolality,Calculated 279 (280-300); Potassium 4.1 mEq/L (3.5-5.1); Sodium 135 mEq/L (136-145); Triglycerides 70 mg/dL (< 150); eGFR For African Americans > 60 (> 60); eGFR For Non-African Americans > 60 (> 60)
[2020-05-24] MEDS: GuaiFENesin Liq 200 MG/10 ML UDC PO SCH (07:50)
[2020-05-24] MEDS: Apixaban 5 MG TABLET PO SCH (07:55)
[2020-05-24] MEDS ORDERED: Aspirin Enteric Coated 81 MG Tablet PO SCH (09:00)
[2020-05-24] MEDS ORDERED: *HR* Amiodarone 200 MG TABLET PO SCH (09:00)
[2020-05-24 10:52] VITALS: BP 138/76
[2020-05-24 13:13] LABS: Estimated Average Glucose 111 mg/dl
[2020-05-24] MEDS ORDERED: Gabapentin 100 MG CAPSULE PO SCH (15:00)
[2020-05-24] MEDS ORDERED: Metoprolol XL (24 HR) Succ 50 MG TAB.ER.24H PO SCH (21:00)
== END 2020-05-24 13:45 | disposition home or self-care (01) ==
LOC: EMEROOARM 08:44 → 3BNU 08:44 → SUATTDRO 11:23 → 3BNU 12:35
PROVIDERS: ADMIT Internal Medicine; ATTEND Internal Medicine

== ENCOUNTER 2020-07-05 12:54 | Observation (INO) ==
[2020-07-05 13:58] LABS: Basophils # 0.1 K/mcL (0.0-0.2); Basophils % 0.8 %; Eosinophils % 0.4 %; Hematocrit 46.5 % (37.5-50.1); Hemoglobin 14.8 g/dL (12.9-16.9); Immature Granulocytes % 1.8 % (0-4); Lymphocytes # 2.3 K/mcL (0.6-4.6); Lymphocytes % 21.2 %; Mean Corpuscular HGB Conc 31.8 g/dL (31.6-35.5); Mean Corpuscular Hemoglobin 28.2 pg (28.0-33.3); Mean Corpuscular Volume 88.6 fL (83.0-100.0); Mean Platelet Volume 9.4 fL (9.4-12.4); Monocytes # 0.8 K/mcL (0.0-1.3); Monocytes % 7.4 %; Neutrophils # 7.5 K/mcL (1.6-8.9); Platelet Count 435 K/mcL (140-400); Red Blood Count 5.25 M/mcL (4.19-5.50); Red Cell Distribution Width 14.2 % (11.5-14.5); Segmented Neutrophils % 68.4 %
[2020-07-05 14:02] LABS: INR 1.5; Prothrombin Time 17.2 Seconds (9.4-12.1)
[2020-07-05 14:05] LABS: Activated Partial Thrombo Time 26.5 Seconds (26.0-36.0)
[2020-07-05 14:35] LABS: BUN/Creatinine Ratio 25 (6-26); Blood Urea Nitrogen 23 mg/dL (8-23); Calcium 9.7 mg/dL (8.6-10.3); Carbon Dioxide 24 mEq/L (23-29); Chloride 97 mEq/L (98-107); Glucose 97 mg/dL (70-105); Lipase 21 Units/L (11-82); Osmolality,Calculated 282 (280-300); Sodium 134 mEq/L (136-145); eGFR For African Americans > 60 (> 60); eGFR For Non-African Americans > 60 (> 60)
[2020-07-05 15:03] LABS: Troponin I < 0.03 ng/mL (< 0.04)
[2020-07-05] MEDS ORDERED: Aspirin 325 MG TABLET PO ONE (15:30)
[2020-07-05] MEDS ORDERED: Acetaminophen 325 MG TABLET PO PRN (15:40)
[2020-07-05] MEDS ORDERED: Naloxone 0.4 MG/ML INJ IVP PRN (15:40)
[2020-07-05] MEDS ORDERED: Ondansetron 4 MG/2 ML VIAL IVP PRN (15:40)
[2020-07-05] MEDS ORDERED: Nitroglycerin 0.4 MG TAB.SUBL SL PRN (15:45)
[2020-07-05] MEDS: Metoprolol XL (24 HR) Succ 50 MG TAB.ER.24H PO SCH (20:49)
[2020-07-05] MEDS: Apixaban 5 MG TABLET PO SCH (20:49)
[2020-07-06 06:45] LABS: Basophils # 0.1 K/mcL (0.0-0.2); Basophils % 0.8 %; Eosinophils % 0.2 %; Hemoglobin 14.5 g/dL (12.9-16.9); Immature Granulocytes % 1.8 % (0-4); Lymphocytes # 2.1 K/mcL (0.6-4.6); Lymphocytes % 17.4 %; Mean Corpuscular HGB Conc 31.5 g/dL (31.6-35.5); Mean Corpuscular Hemoglobin 27.7 pg (28.0-33.3); Mean Corpuscular Volume 87.8 fL (83.0-100.0); Mean Platelet Volume 9.1 fL (9.4-12.4); Monocytes % 7.9 %; Neutrophils # 8.8 K/mcL (1.6-8.9); Platelet Count 384 K/mcL (140-400); Red Blood Count 5.24 M/mcL (4.19-5.50); Red Cell Distribution Width 14.1 % (11.5-14.5); Segmented Neutrophils % 71.9 %; White Blood Count 12.3 K/mcL (4.3-11.1)
[2020-07-06 07:09] LABS: BUN/Creatinine Ratio 34 (6-26); Blood Urea Nitrogen 31 mg/dL (8-23); Calcium 9.1 mg/dL (8.6-10.3); Carbon Dioxide 23 mEq/L (23-29); Chloride 104 mEq/L (98-107); Glucose 122 mg/dL (70-105); Magnesium 2.3 mg/dL (1.6-2.6); Osmolality,Calculated 288 (280-300); Potassium 4.2 mEq/L (3.5-5.1); Sodium 135 mEq/L (136-145); eGFR For African Americans > 60 (> 60); eGFR For Non-African Americans > 60 (> 60)
[2020-07-06] MEDS: Aspirin 81 MG TAB.CHEW PO SCH (09:41)
[2020-07-06] MEDS: Metoprolol XL (24 HR) Succ 50 MG TAB.ER.24H PO SCH ×2 (09:41→20:07)
[2020-07-06] MEDS: Apixaban 5 MG TABLET PO SCH ×2 (09:41→20:07)
[2020-07-06] MEDS ORDERED: Isovue-370 500 ML BOTTLE IVP ONE (13:30)
[2020-07-07 03:49] LABS: Basophils # 0.1 K/mcL (0.0-0.2); Basophils % 0.4 %; Eosinophils % 0.1 %; Hematocrit 44.3 % (37.5-50.1); Hemoglobin 14.5 g/dL (12.9-16.9); Immature Granulocytes % 1.2 % (0-4); Lymphocytes # 2.2 K/mcL (0.6-4.6); Lymphocytes % 19.3 %; Mean Corpuscular HGB Conc 32.7 g/dL (31.6-35.5); Mean Corpuscular Hemoglobin 28.7 pg (28.0-33.3); Mean Corpuscular Volume 87.5 fL (83.0-100.0); Mean Platelet Volume 9.3 fL (9.4-12.4); Monocytes % 9.1 %; Neutrophils # 7.9 K/mcL (1.6-8.9); Platelet Count 414 K/mcL (140-400); Red Blood Count 5.06 M/mcL (4.19-5.50); Red Cell Distribution Width 14.2 % (11.5-14.5); Segmented Neutrophils % 69.9 %; White Blood Count 11.3 K/mcL (4.3-11.1)
[2020-07-07 04:05] LABS: BUN/Creatinine Ratio 33 (6-26); Blood Urea Nitrogen 26 mg/dL (8-23); Calcium 8.9 mg/dL (8.6-10.3); Carbon Dioxide 24 mEq/L (23-29); Chloride 103 mEq/L (98-107); Glucose 115 mg/dL (70-105); Osmolality,Calculated 288 (280-300); Potassium 3.8 mEq/L (3.5-5.1); Sodium 136 mEq/L (136-145); eGFR For African Americans > 60 (> 60); eGFR For Non-African Americans > 60 (> 60)
[2020-07-07] MEDS ORDERED: Fenofibrate 54 MG TABLET PO SCH (09:00)
[2020-07-07] MEDS ORDERED: Isosorbide MONOnitrate (24 HR) 30 MG TAB.ER.24H PO SCH (09:00)
[2020-07-07] MEDS: Aspirin 81 MG TAB.CHEW PO SCH (09:03)
[2020-07-07] MEDS: Metoprolol XL (24 HR) Succ 50 MG TAB.ER.24H PO SCH (09:03)
[2020-07-07] MEDS: Apixaban 5 MG TABLET PO SCH (09:03)
[2020-07-07 10:56] VITALS: BP 129/69
== END 2020-07-07 14:32 | disposition home or self-care (01) ==
LOC: EMEROOARM 12:54 → 3BNU 12:54 → SUATTDRO 17:40 → 3BNU 19:30
PROVIDERS: ADMIT Internal Medicine; ATTEND Internal Medicine

== ENCOUNTER 2021-01-19 20:48 | Observation (INO) ==
[2021-01-19] MEDS ORDERED: cefTRIAXone 2,000 MG in 0.9 % Sodium Chloride Mini Bag 100 ML IVPB ONE (23:16)
[2021-01-19] MEDS ORDERED: Melatonin 3 MG TABLET PO PRN (23:17)
[2021-01-19] MEDS ORDERED: Ondansetron 4 MG/2 ML VIAL IVP PRN (23:17)
[2021-01-19] MEDS ORDERED: Nitroglycerin 0.4 MG TAB.SUBL SL PRN (23:17)
[2021-01-19] MEDS ORDERED: Naloxone 0.4 MG/ML INJ IVP PRN (23:17)
[2021-01-19] MEDS: Isosorbide MONOnitrate (24 HR) 30 MG TAB.ER.24H PO SCH (23:41)
[2021-01-19] MEDS: Apixaban 5 MG TABLET PO SCH (23:41)
[2021-01-20 00:26] LABS: Bacteria,Urine Few per hpf (None-Few); Bilirubin,Urine Negative (Negative); Blood,Urine Negative (Negative); Clarity,Urine Clear (Clear); Color,Urine Light-Yellow (Yellow); Glucose,Urine (UA) Normal (Normal); Ketones,Urine Negative (Negative); Leukocyte Esterase,Urine Moderate (Negative); Mucus,Urine Few per lpf (None-Few); Nitrite,Urine Positive (Negative); PH,Urine 6.5 pH Units (5.0-8.0); Protein,Urine Negative (Neg-Trace); RBC,Urine 0-3 per hpf (0-3); Specific Gravity,Urine 1.009 (1.010-1.025); Urobilinogen,Urine Normal (Normal)
[2021-01-20 05:29] LABS: Basophils % 0.5 %; Eosinophils # 0.1 K/mcL (0.0-0.6); Eosinophils % 1.4 %; Hemoglobin 13.1 g/dL (12.9-16.9); Immature Granulocytes % 0.3 % (0-4); Lymphocytes # 1.9 K/mcL (0.6-4.6); Lymphocytes % 32.7 %; Mean Corpuscular HGB Conc 34.5 g/dL (31.6-35.5); Mean Corpuscular Hemoglobin 30.5 pg (28.0-33.3); Mean Corpuscular Volume 88.6 fL (83.0-100.0); Mean Platelet Volume 9.5 fL (9.4-12.4); Monocytes # 0.7 K/mcL (0.0-1.3); Monocytes % 11.4 %; Neutrophils # 3.1 K/mcL (1.6-8.9); Platelet Count 236 K/mcL (140-400); Red Blood Count 4.29 M/mcL (4.19-5.50); Red Cell Distribution Width 13.3 % (11.5-14.5); Segmented Neutrophils % 53.7 %; White Blood Count 5.8 K/mcL (4.3-11.1)
[2021-01-20 05:44] LABS: Alanine Aminotransferase 13 Units/L (7-52); Albumin 3.6 g/dL (3.5-5.7); Albumin/Globulin Ratio 1.6 (1.1-2.2); Alkaline Phosphatase 45 Units/L (34-104); Aspartate Amino Transferase 16 Units/L (13-39); BUN/Creatinine Ratio 13 (6-26); Bilirubin,Total 0.6 mg/dL (0.3-1.0); Blood Urea Nitrogen 13 mg/dL (8-23); Calcium 8.4 mg/dL (8.6-10.3); Carbon Dioxide 25 mEq/L (23-29); Chloride 107 mEq/L (98-107); Chol/HDL Ratio 3.7 (0-4.9); Cholesterol 141 mg/dL (< 200); Globulin 2.2 g/dL (2.4-3.5); Glucose 95 mg/dL (70-105); HDL Cholesterol 38 mg/dL (40-59); LDL Cholesterol,Calculated 92 mg/dL (< 100); Osmolality,Calculated 288 (280-300); Potassium 3.6 mEq/L (3.5-5.1); Sodium 139 mEq/L (136-145); Total Protein 5.8 g/dL (6.4-8.9); Triglycerides 53 mg/dL (< 150); eGFR For African Americans > 60 (> 60); eGFR For Non-African Americans > 60 (> 60)
[2021-01-20] MEDS ORDERED: *HR* Heparin 5,000 UNIT/ML VIAL IVP PRN ×4 (08:26→08:43)
[2021-01-20] MEDS: Loratadine 10 MG TABLET PO SCH (08:26)
[2021-01-20] MEDS: Fenofibrate 54 MG TABLET PO SCH (08:26)
[2021-01-20] MEDS: Metoprolol XL (24 HR) Succ 50 MG TAB.ER.24H PO SCH ×2 (08:26→20:18)
[2021-01-20] MEDS: Aspirin Enteric Coated 81 MG Tablet PO SCH (08:26)
[2021-01-20] MEDS: Cholecalciferol (D-3) 1,000 UNIT (25MCG) TABLET PO SCH (08:26)
[2021-01-20] MEDS: cefTRIAXone 1,000 MG in Water for inj. (sterile) 10 ML IVP SCH (08:27)
[2021-01-20] MEDS: Apixaban 5 MG TABLET PO SCH (08:27)
[2021-01-20] MEDS: Isosorbide MONOnitrate (24 HR) 30 MG TAB.ER.24H PO SCH (08:29)
[2021-01-20] MEDS: Fluticasone Propionate Nasal 50 MCG/SPRAY BOTTLE NS SCH (08:29)
[2021-01-20] MEDS ORDERED: Heparin 25,000UNIT/250ML 1/2NS 25,000 UNIT/250 ML IV.SOLN IVC SCH (08:30)
[2021-01-20 09:07] LABS: Hematocrit 40.9 % (37.5-50.1); Hemoglobin 13.8 g/dL (12.9-16.9); Mean Corpuscular HGB Conc 33.7 g/dL (31.6-35.5); Mean Corpuscular Hemoglobin 29.8 pg (28.0-33.3); Mean Corpuscular Volume 88.3 fL (83.0-100.0); Mean Platelet Volume 9.4 fL (9.4-12.4); Platelet Count 242 K/mcL (140-400); Red Blood Count 4.63 M/mcL (4.19-5.50); Red Cell Distribution Width 13.2 % (11.5-14.5); White Blood Count 5.6 K/mcL (4.3-11.1)
[2021-01-20 09:09] LABS: Heparin anti-factor XA UFH 0.84 IU/mL (0.30-0.70); INR 1.4; Prothrombin Time 15.8 Seconds (9.4-12.1)
[2021-01-20 09:12] LABS: Activated Partial Thrombo Time 29.3 Seconds (26.0-36.0)
[2021-01-20] MEDS: Heparin 25,000UNIT/250ML 1/2NS 25,000 UNIT/250 ML IV.SOLN IVC SCH (10:08)
[2021-01-20] MEDS ORDERED: Perflutren Lipid Microsphere 1.3 ML in 0.9 % Sodium Chloride 8.7 ML IVP PRN (10:45)
[2021-01-20] MEDS: Acetaminophen 325 MG TABLET PO PRN ×2 (12:18→18:32)
[2021-01-20] MEDS: Lactobacillus 1 EACH CAP.SPRINK PO SCH (20:18)
[2021-01-21 00:48] LABS: Hematocrit 40.7 % (37.5-50.1); Hemoglobin 13.9 g/dL (12.9-16.9); Mean Corpuscular HGB Conc 34.2 g/dL (31.6-35.5); Mean Corpuscular Hemoglobin 30.1 pg (28.0-33.3); Mean Corpuscular Volume 88.1 fL (83.0-100.0); Mean Platelet Volume 9.4 fL (9.4-12.4); Platelet Count 246 K/mcL (140-400); Red Blood Count 4.62 M/mcL (4.19-5.50); Red Cell Distribution Width 13.2 % (11.5-14.5)
[2021-01-21 01:03] LABS: BUN/Creatinine Ratio 15 (6-26); Blood Urea Nitrogen 15 mg/dL (8-23); Calcium 8.7 mg/dL (8.6-10.3); Carbon Dioxide 24 mEq/L (23-29); Chloride 109 mEq/L (98-107); Glucose 105 mg/dL (70-105); Magnesium 2.2 mg/dL (1.6-2.6); Osmolality,Calculated 287 (280-300); Phosphorous 2.6 mg/dL (2.7-4.5); Potassium 3.8 mEq/L (3.5-5.1); Sodium 138 mEq/L (136-145); eGFR For African Americans > 60 (> 60); eGFR For Non-African Americans > 60 (> 60)
[2021-01-21 06:29] VITALS: O2SAT 97
[2021-01-21] MEDS ORDERED: Regadenoson 0.4 MG/5 ML SYRINGE IVP ONE (06:31)
[2021-01-21] MEDS: Fluticasone Propionate Nasal 50 MCG/SPRAY BOTTLE NS SCH (10:32)
[2021-01-21] MEDS: cefTRIAXone 1,000 MG in Water for inj. (sterile) 10 ML IVP SCH (10:32)
[2021-01-21] MEDS: Cholecalciferol (D-3) 1,000 UNIT (25MCG) TABLET PO SCH (10:33)
[2021-01-21] MEDS: Heparin 25,000UNIT/250ML 1/2NS 25,000 UNIT/250 ML IV.SOLN IVC SCH (10:33)
[2021-01-21] MEDS: Aspirin Enteric Coated 81 MG Tablet PO SCH (10:33)
[2021-01-21] MEDS: Fenofibrate 54 MG TABLET PO SCH (10:33)
[2021-01-21] MEDS: Metoprolol XL (24 HR) Succ 50 MG TAB.ER.24H PO SCH (10:34)
[2021-01-21] MEDS: Lactobacillus 1 EACH CAP.SPRINK PO SCH (10:34)
[2021-01-21] MEDS: Loratadine 10 MG TABLET PO SCH (10:34)
[2021-01-21 10:48] VITALS: BP 148/81; PULSE 65; TEMP 98.7
[2021-01-21] MEDS ORDERED: Apixaban 5 MG TABLET PO SCH (13:30)
== END 2021-01-21 15:09 | disposition home or self-care (01) ==
LOC: CDU → SUATTDRO 21:36 → CDU 22:28
PROVIDERS: ADMIT Family Medicine; ATTEND Internal Medicine

== ENCOUNTER 2021-04-15 15:35 | Inpatient (IN) ==
[2021-04-15 17:07] LABS: Basophils % 0.3 %; Eosinophils % 0.2 %; Hematocrit 29.9 % (37.5-50.1); Hemoglobin 10.1 g/dL (12.9-16.9); Immature Granulocytes % 1.1 % (0-4); Lymphocytes # 1.9 K/mcL (0.6-4.6); Mean Corpuscular HGB Conc 33.8 g/dL (31.6-35.5); Mean Corpuscular Hemoglobin 31.3 pg (28.0-33.3); Mean Corpuscular Volume 92.6 fL (83.0-100.0); Mean Platelet Volume 9.7 fL (9.4-12.4); Monocytes # 0.7 K/mcL (0.0-1.3); Monocytes % 6.8 %; Neutrophils # 7.8 K/mcL (1.6-8.9); Platelet Count 331 K/mcL (140-400); Red Blood Count 3.23 M/mcL (4.19-5.50); Red Cell Distribution Width 13.7 % (11.5-14.5); Segmented Neutrophils % 73.6 %; White Blood Count 10.6 K/mcL (4.3-11.1)
[2021-04-15 17:16] LABS: BUN/Creatinine Ratio 59 (6-26); Blood Urea Nitrogen 54 mg/dL (8-23); Calcium 8.2 mg/dL (8.6-10.3); Carbon Dioxide 21 mEq/L (23-29); Chloride 109 mEq/L (98-107); Glucose 149 mg/dL (70-105); Osmolality,Calculated 304 (280-300); Potassium 4.6 mEq/L (3.5-5.1); Sodium 138 mEq/L (136-145); Troponin I < 0.03 ng/mL (< 0.04); eGFR For African Americans > 60 (> 60); eGFR For Non-African Americans > 60 (> 60)
[2021-04-15] MEDS ORDERED: *HR* Metoprolol 5 MG/5 ML VIAL IVP ONE (20:16)
[2021-04-15] MEDS ORDERED: Ondansetron 4 MG/2 ML VIAL IVP PRN (22:33)
[2021-04-15] MEDS ORDERED: Melatonin 3 MG TABLET PO PRN (22:33)
[2021-04-15] MEDS ORDERED: Naloxone 0.4 MG/ML INJ IVP PRN (22:33)
[2021-04-15] MEDS ORDERED: Acetaminophen 325 MG TABLET PO PRN (22:33)
[2021-04-15] MEDS ORDERED: Furosemide 20 MG/2 ML VIAL IVP ONE (22:36)
[2021-04-15] MEDS ORDERED: Apixaban 5 MG TABLET PO SCH (22:45)
[2021-04-15] MEDS: Ringers Solution, Lactated 1,000 ML IVC SCH (23:37)
[2021-04-16] MEDS ORDERED: Pantoprazole 40 MG VIAL IVP ONE (00:45)
[2021-04-16] MEDS ORDERED: Ringers Solution, Lactated 250 ML IVC PRN (00:52)
[2021-04-16 00:59] LABS: Basophils % 0.3 %; Hemoglobin 8.7 g/dL (12.9-16.9); Immature Granulocytes % 1.2 % (0-4); Lymphocytes # 2.4 K/mcL (0.6-4.6); Mean Corpuscular HGB Conc 33.5 g/dL (31.6-35.5); Mean Corpuscular Hemoglobin 30.5 pg (28.0-33.3); Mean Corpuscular Volume 91.2 fL (83.0-100.0); Mean Platelet Volume 9.9 fL (9.4-12.4); Monocytes # 0.8 K/mcL (0.0-1.3); Monocytes % 6.5 %; Neutrophils # 8.5 K/mcL (1.6-8.9); Platelet Count 291 K/mcL (140-400); Red Blood Count 2.85 M/mcL (4.19-5.50); Red Cell Distribution Width 13.7 % (11.5-14.5); White Blood Count 11.7 K/mcL (4.3-11.1)
[2021-04-16 01:07] LABS: INR 1.6
[2021-04-16 01:22] LABS: BUN/Creatinine Ratio 59 (6-26); Blood Urea Nitrogen 63 mg/dL (8-23); Calcium 8.1 mg/dL (8.6-10.3); Carbon Dioxide 17 mEq/L (23-29); Chloride 109 mEq/L (98-107); Glucose 186 mg/dL (70-105); Magnesium 1.7 mg/dL (1.6-2.6); Osmolality,Calculated 309 (280-300); Potassium 3.9 mEq/L (3.5-5.1); Sodium 138 mEq/L (136-145); eGFR For African Americans > 60 (> 60); eGFR For Non-African Americans > 60 (> 60)
[2021-04-16 01:24] LABS: Troponin I 0.03 ng/mL (< 0.04)
[2021-04-16] MEDS: Pantoprazole 40 MG in 0.9 % Sodium Chloride Mini Bag 100 ML IVC SCH ×2 (01:40→07:36)
[2021-04-16] MEDS ORDERED: 0.9 % Sodium Chloride 1,000 ML IVC ONE (07:46)
[2021-04-16] MEDS ORDERED: Simethicone 40 MG/0.6 ML MLS IR ONE (08:03)
[2021-04-16] MEDS ORDERED: Ondansetron 4 MG/2 ML VIAL ONE (08:49)
[2021-04-16] MEDS ORDERED: Lidocaine -MPF 2% 2 ML VIAL ONE (08:56)
[2021-04-16] MEDS ORDERED: Isosorbide MONOnitrate (24 HR) 30 MG TAB.ER.24H PO SCH (09:00)
[2021-04-16] MEDS ORDERED: Aspirin Enteric Coated 81 MG Tablet PO SCH (09:00)
[2021-04-16] MEDS ORDERED: Metoprolol XL (24 HR) Succ 50 MG TAB.ER.24H PO SCH ×2 (09:00→21:00)
[2021-04-16] MEDS ORDERED: SODIUM CHLORIDE/NAHCO3/KCL/PEG 4,000 ML SOLN.RECON PO ONE ×2 (09:09→21:45)
[2021-04-16 11:00] LABS: Hematocrit 21.4 % (37.5-50.1); Hemoglobin 7.2 g/dL (12.9-16.9)
[2021-04-16 18:31] LABS: Hematocrit 23.5 % (37.5-50.1); Hemoglobin 7.9 g/dL (12.9-16.9)
[2021-04-16] MEDS: Pantoprazole 40 MG VIAL IVP SCH (18:53)
[2021-04-16] MEDS: Ringers Solution, Lactated 1,000 ML IVC SCH (18:54)
[2021-04-16] MEDS: Metoprolol XL (24 HR) Succ 50 MG TAB.ER.24H PO SCH (21:24)
[2021-04-17 01:49] LABS: Hematocrit 24.5 % (37.5-50.1); Hemoglobin 7.9 g/dL (12.9-16.9); Mean Corpuscular HGB Conc 32.2 g/dL (31.6-35.5); Mean Corpuscular Hemoglobin 30.9 pg (28.0-33.3); Mean Corpuscular Volume 95.7 fL (83.0-100.0); Platelet Count 253 K/mcL (140-400); Red Blood Count 2.56 M/mcL (4.19-5.50); Red Cell Distribution Width 13.9 % (11.5-14.5)
[2021-04-17 01:51] LABS: White Blood Count 21.8 K/mcL (4.3-11.1)
[2021-04-17 02:14] LABS: BUN/Creatinine Ratio 32 (6-26); Blood Urea Nitrogen 33 mg/dL (8-23); Calcium 7.7 mg/dL (8.6-10.3); Carbon Dioxide 19 mEq/L (23-29); Chloride 107 mEq/L (98-107); Glucose 117 mg/dL (70-105); Osmolality,Calculated 292 (280-300); Sodium 137 mEq/L (136-145); eGFR For African Americans > 60 (> 60); eGFR For Non-African Americans > 60 (> 60)
[2021-04-17] MEDS: Pantoprazole 40 MG VIAL IVP SCH (04:49)
[2021-04-17 05:24] LABS: Hematocrit 19.5 % (37.5-50.1); Hemoglobin 6.6 g/dL (12.9-16.9)
[2021-04-17] MEDS ORDERED: 0.9 % Sodium Chloride 250 ML ONE (06:05)
[2021-04-17] MEDS ORDERED: Lidocaine -MPF 2% 2 ML VIAL ONE (08:00)
[2021-04-17] MEDS ORDERED: *HR* Propofol 200 MG/20 ML VIAL IVP ONE (08:02)
[2021-04-17 12:10] LABS: Hematocrit 23.5 % (37.5-50.1); Hemoglobin 7.8 g/dL (12.9-16.9)
[2021-04-17] MEDS: Metoprolol XL (24 HR) Succ 50 MG TAB.ER.24H PO SCH (12:36)
[2021-04-17] MEDS: Ringers Solution, Lactated 1,000 ML IVC SCH (13:07)
[2021-04-17] MEDS ORDERED: Simethicone 40 MG/0.6 ML MLS IR ONE (14:58)
[2021-04-17 15:04] VITALS: BP 99/60; PULSE 78; TEMP 98.2; O2SAT 98
[2021-04-17] MEDS ORDERED: 0.9 % Sodium Chloride 1,000 ML ONE (15:48)
[2021-04-17 16:14] LABS: Hematocrit 24.7 % (37.5-50.1); Hemoglobin 7.9 g/dL (12.9-16.9)
[2021-04-17] MEDS ORDERED: *HR* Amiodarone 150 MG/3 ML VIAL IVPB ONE (16:22)
[2021-04-17] MEDS ORDERED: *HR* EPINEPHrine 1 MG/10 ML SYRINGE IVP ONE (16:22)
== END 2021-04-17 16:23 | disposition expired | DRG 378 ==
LOC: EMEROOARM 15:35 → 3BNU 15:35 → SUATTDRO 22:20 → 3BNU 23:23
PROVIDERS: ADMIT Family Medicine; ATTEND Internal Medicine